=== PATIENT | female | born 2000 | race Caucasian/White ===

== ENCOUNTER 2023-04-17 15:52 | Emergency (ER) | payer BC, SELFPAY ==
[2023-04-17 16:06] VITALS: BP 137/77; PULSE 73; RESP 18; TEMP 36.9; O2SAT 99; BMI 24.0
--- NOTE | 2023-04-17 16:16 | XR_ITS ---
[address] [address] Patient Name: TATA CORADO MRN: [id number] date: 2000 Sex: F Assigned Patient Location: ER Current Patient Location: ER Accession/Order Number: [id number] Exam Date: 04/17/2023 16:27 Report Date: 04/17/2023 17:08 At the request of: MACEY QUINTANILLA Procedure: XR knee HUMBERTO 4V EXAM: XR knee HUMBERTO 4V HISTORY: bilateral knee pain COMPARISON: None. TECHNIQUE: 3 views Bilateral knees FINDINGS: Bones: No acute or aggressive appearing bony lesion. Joints: Normal alignment. No effusion. No significant degenerative findings. Soft tissues: Unremarkable. XR/XR knee HUMBERTO 4V IMPRESSION: No acute process of both knees Electronically authenticated by: SEVERO DARLING Date: 04/17/2023 17:08
--- NOTE | 2023-04-17 16:17 | ED.EXTPRO1 ---
HPI - Extremity Problem General Chief complaint: Extremity Problem, Nontraumatic Stated complaint: BILATERAL KNEE PAIN Time Seen by Provider: 04/17/23 16:01 Source: patient Mode of arrival: walk-in Limitations: no limitations History of Present Illness HPI Narrative: Patient is a 22-year-old female presents to the emergency department for intermittent bilateral knee pain for the last several weeks. She denies any mechanism of injury or trauma. She is not concerned for . No medications taken prior to arrival. She reports pain diffusely in the bilateral knees, no calf pain or lower leg pain. She has not noticed any redness or swelling of the joints. Related Data Previous Rx's Medication Instructions Recorded naproxen sodium 550 mg tablet 550 mg PO BID PRN pain #10 tabs 04/17/23 Allergies Allergy/AdvReac Type Severity Reaction Status Date / Time No Known Drug Allergies Allergy Verified 04/17/23 16:07 Review of Systems ROS Constitutional Denies: fever or chills Cardiovascular Denies: chest pain Respiratory Denies: shortness of breath or cough Gastrointestinal Denies: nausea or vomiting Genitourinary Denies: painful urination Musculoskeletal Reports: extremity pain and joint pain; Denies: back pain or extremity swelling Integumentary/Breast Denies: rash or skin pain Neurological Denies: headache PFSH PFSH Social History Smoking status: Never smoker Exam Narrative Exam Narrative: Gen.: Awake, alert, in no distress Head: Normocephalic, atraumatic ENT: Moist mucous membranes Respiratory: No respiratory distress Extremities: Moves extremities equally, no injuries noted; bilateral patella stable, no laxity. No redness or swelling noted. Normal range of motion to flexion and extension. Psych: Normal mood and affect Neuro: No focal neuro deficit Skin: Warm, dry, intact Constitutional Vital Signs, click to edit/add: Last Vital Signs Temp 98.5 F 04/17/23 16:06 Pulse 73 04/17/23 16:06 Resp 18 04/17/23 16:06 BP 137/77 04/17/23 16:06 Pulse Ox 99 04/17/23 16:06 O2 Del Method Room Air 04/17/23 16:06 Course Vital Signs Vital signs: Vital Signs Temperature 98.5 F 04/17/23 16:06 Pulse Rate 73 04/17/23 16:06 Respiratory Rate 18 04/17/23 16:06 Blood Pressure 137/77 04/17/23 16:06 Pulse Oximetry 99 04/17/23 16:06 Oxygen Delivery Method Room Air 04/17/23 16:06 Temperature 98.5 F 04/17/23 16:06 Pulse Rate 73 04/17/23 16:06 Respiratory Rate 18 04/17/23 16:06 Blood Pressure 137/77 04/17/23 16:06 Pulse Oximetry 99 04/17/23 16:06 Oxygen Delivery Method Room Air 04/17/23 16:06 MDM - Extremity (Nontraumatic) MDM Narrative Medical decision making narrative: Patient with a benign exam, no evidence of septic arthritis or pain out of proportion on exam. No calf tenderness or swelling. X-rays of the bilateral knees are unremarkable. Patient was placed in Ambrosio wrap's of the bilateral knees and discharged home on NSAIDs. Follow-up with PCP and return to the ER if symptoms change or worsen. Work note provided. Imaging Data XR knees bilateral: Attestation: I have reviewed the pertinent imaging results. Radiologist's impression: Procedure: XR knee HUMBERTO 4V EXAM: XR knee HUMBERTO 4V HISTORY: bilateral knee pain COMPARISON: None. TECHNIQUE: 3 views Bilateral knees FINDINGS: Bones: No acute or aggressive appearing bony lesion. Joints: Normal alignment. No effusion. No significant degenerative findings. Soft tissues: Unremarkable. IMPRESSION: No acute process of both knees Electronically authenticated by: SEVERO DARLING Date: 04/17/2023 17:08 Discharge Plan Discharge Chief Complaint: Extremity Problem, Nontraumatic Clinical Impression: Acute bilateral knee pain Patient Disposition: Home, Self-Care Time of Disposition Decision: 17:14 Condition: Good Prescriptions / Home Meds: New naproxen sodium 550 mg tablet 550 mg PO BID PRN (Reason: pain) Qty: 10 0RF Instructions: Arthralgia (ED) Stand Alone Forms: Portal Instructions Referrals: Physician,Non-Staff, MD [Physician] - 1 week
== END 2023-04-17 17:23 | disposition home or self-care (01) ==
PROVIDERS: Emergency Provider Emergency Medicine; PCP Internal Medicine
DX: M25.561 Pain in right knee (principal); M25.562 Pain in left knee
CPT/HCPCS: 73564; 99283

== ENCOUNTER 2024-10-22 02:22 | Emergency (ER) | payer SELFPAY ==
[2024-10-22 02:25] VITALS: BP 122/87; PULSE 88; TEMP 37.1; O2SAT 99; BMI 26.5
--- OUTSIDE RECORDS SUMMARY | 2024-10-22 02:33 | XMS_ITS | CCD ---
Author Organization [facility] Care Team Providers Care Engineering Program Analyst Name Role Phone Abrahan Ireland Unavailable Unavailabl Abrahan Wallace Unavailable Unavailabl Abrahan Wallace Unavailable Unavailabl Abrahan Wallace Unavailable Unavailabl Abrahan Wallace Unavailable Unavailable Abrahan Ireland Unavailable Unavailable Ancelmo, Valerie Lainey Unavailable Unavailable Abrahan Ireland Unavailable Unavailable Unavailable GE LACY Admitting Unavailable GE LACY Attending Unavailable [facility] Primary Care Unavailable GE LACY Consulting Unavailable MANOJ APARICIO Consulting Unavailable ANNA GOMES Primary Care Physician ANNA GOMES Referring Unavail able ANNA GOMES Attending Unavail able ANNA GOMES Admitting Unavail able Medications Completed/Discontinued Medications Medication Drug Class(es) Dates Sig (Normalized) Sig (Original) 200 actuat albuterol 0.09 mg/actuat metered dose inhaler (2 sources) beta2-Adrenergic Agonist Start: 12-20-2017 take 1-2 puff(s) by inhalation every four to six hours as needed ProAir HFA 108 (90 Base) MCG/ACT Inhalation Aerosol Solution INHALE 1 TO 2 PUFFS EVERY 4 TO 6 HOURS NEEDED. Quantity: 1 Refills: 1 Abrahan Ireland MD Start : 20-Dec-2017 Active 8.5 GM Inhaler 24 hr amphetamine aspartate 5 mg / amphetamine sulfate 5 mg / dextroamphetamine saccharate 5 mg / dextroamphetamine sulfate 5 mg extended release oral capsule (3 sources) Central Nervous System Stimulant Start: 05-30-2015 take 1 capsule by mouth once daily in the morning Amphetamine-Dex troamphet ER 20 MG Oral Capsule Extended Release 24 Hour take 1 capsule by mouth every morning Quantity: 30 Refills: 0 Abrahan Ireland MD Start : 27-Jul-2016 Active ARIPiprazole 5 mg oral tablet (3 sources) Atypical Antipsychotic take 2 tablets by mouth once daily Abilify 5 MG Oral Tablet takes 2 tab po daily Quantity: 0 Refills: 0 Ordered: 26-Aug-2021 DO Active Abilify 5 MG Ora l Tablet Refills: 0 Active guanFACINE 1 mg oral tablet (2 sources) Central alpha-2 Adrenergic Agonist Start: 06-30-2021 take 1 tablet by mouth once daily guanFACINE HCl - 1 MG Oral Tablet TAKE 1 TABLET BY MOUTH NIGHTLY DIRECTED Quantity: 30 Refills: 0 Ordered: 30-Jun-2021 DO Start : 30-Jun-2021 Active End: 08-26-2021 Tenex TABS Quantity: 0 Refil ls: 0 Ordered: 26-Aug-2021 DO End : 26-Aug-2021 Complete 24 hr venlafaxine 150 mg extended release oral capsule (1 source) Serotonin and Norepinephrine Reuptake Inhibitor Start: 08-05-2021 take 1 capsule by mouth once daily in the morning Venlafaxine HCl ER 150 MG Oral Capsule Extended Release 24 Hour TAKE 1 CAPSULE BY MOUTH EVERY DAY IN THE MORNING Quantity: 30 Refills: 0 Ordered: 05-Aug-2021 DO Start : 05-Aug-2021 Active Problems Active Problems Problem Classification Problem Date Documented Da te Episodic/Chronic Abdominal pain (6 sources) Functional abdominal pain syndrome; Translations: [Generalized abdominal pain] Episodic Comment on above: non acute abd; Administrative/social admission (1 source) Counseling procedure with explicit context; Translations: [Dietary counseling and surveillance] Episodic Allergic reactions (3 sources) Psoriasiform eczema; Translations: [Other psoriasis and similar disorders] Episodic Anxiety disorders (5 sources) Anxiety; Translations: [Anxiety state, unspecified] Chronic Comment on above: seeing DR Danette Estevez [place] [phone] July 2016doing very well on Abilify; Asthma (3 sources) Exercise-induced asthma; Translations: [Exercise induced bronchospasm] Chronic Attention-deficit conduct and disruptive behavior disorders (3 sources) Attention deficit hyperactivity disorder, predominantly inattentive type; Translations: [Attention deficit disorder without mention of hyperactivity] Chronic Comment on above: Dr Munoz Neuro ev al of ADD and school performance issues May 2016 eval; Attention-deficit, conduct, and disruptive behavior disorders (1 source) Attention-deficit hyperactivity disorder, unspecified type; Translations: [ADHD UNSPECIFIED TYPE] Onset: 10-25-2021 Chronic Blindness and vision defects (3 sources) Wears glasses; Translations: [Other specified conditions influencing health status] Episodic Diabetes mellitus without complication (1 source) Prediabetes; Translations: [Prediabetes] Episodic Disorders usually diagnosed in infancy childhood or adolescence (2 sources) Anxiety disorder of childhood; Translations: [History of Anxiety in pediatric patient] Chronic E Codes: Natural/environment (1 source) Other and unspecified overexertion or strenuous movements or postures, initial encounter; Translations: [OTH AND UNS OVREXRT/STRN MVMT/POS INT] Onset: 10-25-2021 Episodic Immunizations and screening for infectious disease (1 source) Patient encounter status; Translations: [Other specified vaccination] Episodic Other aftercare (1 source) Other detention (current) drug therapy; Translations: [OTH NURSING HOME CURRENT DRUG THERAPY] Onset: 10-25-2021 Episodic Other gastrointestinal disorders (3 sources) Chronic constipation; Translations: [Constipation, unspecified] Episodic Other gastrointestinal disorders (1 source) Heartburn; Translations: [Heartburn] Episodic Other inflammatory condition of skin (3 sources) Seborrheic dermatitis of scalp; Translations: [Seborrhea capitis] Episodic Other non-traumatic joint disorders (3 sources) Pain in left shoulder; Translations: [PAIN IN LEFT SHOULDER] Onset: 10-22-2021 Episodic Other nutritional; endocrine; and metabolic disorders (1 source) Obese class I; Translations: [Body mass index (BMI) 30.0-30.9, adult] Chronic Other nutritional; endocrine; and metabolic disorders (1 source) Abnormal weight gain; Translations: [Abnormal weight gain] Episodic Other screening for suspected conditions (not mental disorders or infectious disease) (3 sources) Child hearing screening failure; Translations: [Nonspecific abnormal auditory function studies] Episodic Residual codes; unclassified (1 source) Finding of body mass index; Translations: [Body Mass Index, pediatric, 5th percentile to less than 85th percentile for age] Episodic Residual codes; unclassified (1 source) History finding; Translations: [Other specified conditions influencing health status] Episodic Residual codes; unclassified (1 source) Family history of diabetes mellitus; Translations: [Family history of diabetes mellitus] Episodic Screening and history of mental health and substance abuse codes (3 sources) H/O: psychiatric disorder; Translations: [Personal history of other mental disorders] Episodic Sprains and strains (1 source) Strain of unspecified muscle, fascia and tendon at shoulder and upper arm level, left arm, initial encounter; Translations: [STRN UNS MSC F TND SHLDR UA LA INIT] Onset: 10-25-2021 Episodic Past or Other Problems Problem Classification Problem Date Documented Da te Episodic/Chronic Unclassified (6 sources) Patient encounter status; Translations: [Encounter for routine child health examination with abnormal findings] Unclassified (2 sources) History finding; Translations: [History of No pertinent past surgical history] Unclassified (1 source) Normal body mass index; Translations: [BMI (body mass index), pediatric, 5% to less than 85% for age] Unclassified (1 source) Finding of body mass index; Translations: [BMI (body mass index), pediatric, 5% to less than 85% for age] NEGATED: Highlighted row has not occurred!Residual codes; unclassified (6 sources) Disease Episodic Results Test Name Value Interpretation Reference Range Facility Coding Summary.on 01-06-2022 Coding Summary. [id number] Gh 0bWw+PGhlYWQ+HY8NWBKzM 29ihFErjS5BK6tAAJ1PSXV BGKJILB4CAM2vqAU5SQoiC 2VybiAv RwmoiNRfVS48MFf8DKM3fE lmLBfpkR3vfNVmN1w6NwJq OM12hH12CDuhJAIsKmD3Wk ZpbjsgbWFy I0xdWwWxrRXfVbh+PHRhYm xlIHdpZHRoPScxMDAlJyBz jNgwVA2gNo1zHASjRDNdmJ xhcHNlOiBj q1jzSPPiZVkrGY2knZdaJ2 RimYN9MLGnk7q7Of59fLQ+ JYXfTAC7oAgqPPrgv513Dn Ftj0rxOXM0 qNMgNCdeNFT4D16hc6X7QX FpTLIjFEI3bKW4bJ3cdHha bopvK9CesNCrFwU5CIC6qU KcuS7ntSri npvzdM5iHwy+V52VOL8ASK QBZR5WLoz4K4HyEczkoWZ+ AI78UNFaRV10gXZluZAje2 epbWn2YuMq NERqCGG2yZyjIXdmy1HqAB FhX97eoSYdh5Q0QJHxqYov xWTeQhZbeBN3yZ6gOPghoi mte6coffgo Ycrkb7ebnk83tY41C06iXZ jyUIGsHBZ7LEUsIEQrlVxt sr2wlF3oUr0+GZgwh9pir4 njhYq2JsXr BFOmwiQqlSuaUIC7h5NpSi 68N8ZxzRlbi8ReCrj6xj32 fEQpr6O7uIM8KEbqKESxdS 4gEWcdZsA1 UHGsBzDdsR22gKMtELinEs 4dfWrwoFsaXM7cSXOanbbn HAZoaP5yHTSmeGNqzOpfYH 4wNTBpbjtm i975OrNyZZR7JERdsUSgO8 BbcI1mKeCnYCYkMEGvX6Nr sOGeIXjtW894TDhcVkB0RK XgysBaM8Ak UAWtjZwwFrT6z7Z4Aa0Go2 BeautkNDH9YTofUMK0AhO2 GrGuPmM1O0CpDqj5FCEycG cfWC8xM2Kv GQCobqfmkkomrLA3QWHfDR EviL71kDQlUKjmRn9pe8B9 p368JSTiHTYcmR13Fl5qeN ogMTBwdCBU rR3mjxhpr8zpggydByWyEX TuQWz5IBg8LFOzeFjnJuVj NKV0RuW4BYT8sCRoxO2cbO qfygzmeM6x Oyc+X83yjW2tDJF6ZBT1be ooMGIpgsGdLK33AP03S7Fb PjwvdGFibGU+PGRpdiBzdH guLI9oUvXb m4muv2BhRWltW8AqHFWwTG zoXan6UYIpMTN1tEV0lD3m TZDsBAxdl1G9cBZ9Y8Xtze Jnvo6qv1id RHVgPMwbC30lbBZts2Q3CT IulRJ7DISngSrtLhJcbT75 Oyc+GCYwyGief0HzOthat1 bqk0ohcSz0 VdGrCAKffsTiuUvbLBH9y7 BhTq50N66hHUrrYSSiMEZp NNQhNLAnyIgvaq2chE5lBd 8+PGNvbCB3 gQS0rE1xNKSuKvI6YQvvT4 38IpCmiZHiZrhnz7adb0ri mXw9JmUpRLHycuTtnQsoNZ J2p2UlEo44 I55hUEpkBKAtKTSmEHFiRZ GtbUfljg8ykA3rRk6+PC9j p0zqey47lZ99jDB+PHRkIH X0aUkyIEcr TTXjbR6lIZjmUrB3OLIjKr EupX22tKLbBTavMu7ytBzr qQzyAZ4pHNHrpbrph646Iy Eby6edIRYt cDPuOExzNYN5J56dj6R0XI JiFGYoZCN1nFK4oB5xtWzr bjogbGVmdDsgdmVydGljYW wfMDgxM594 IHRvcDsnPlBhdGllbnQgTm AoDEv7K4FkQuu7PZNvrHui QU2blHHwXMutRk8vgMhxsA owBT1yVFJj ctiuq466MmNkp9ocDCNvlB IxKXuiPKQ3B95qc7I8TDHe HANoIXR0iDL3dU8xcNjbqo ogbGVmdDsg onEyvTzeRHtqABosP364JM RvcDsnPkJpcnRoIERhdGU6 WC96XM27nOZug0U0mXF8R4 BhZGRpbmct gyeinZS7IQFlHKCkbU52Mr 5brRolCp2yTVLlMES5JZVb ySUnW1MbbL3dGxDxHUXkYO EiY8UjtNHp ENrvN980QQknBjA1ZOXdrs NaK5DoMFCleOxuKuJ5r9A2 Jg1BV2X9WT34RC47qSFrn5 Y9aVA6K4Gr SVSxezprognedPK6HJCvQS HygU94Hz7jeJxhEv8yDWNq IDQ0IIXpvXCkB4AzlR8mHp AjMDAwMDAw N8YlcCJfBSnnJ471ENioMx P2CXXbgfRbH6NoGQNujIub DgB5h9E9Pc0CPXn6LZ53CX 79pHQtw0O7 rXM8I8YpJAWdsigxzpmvfT G4CJLvIMUbxX37By2ruVsw Dh8lZQAkIUR3SQClqUYeN7 AfyT4kUjSy FDYsCCUeS6EllLLiJCcgN6 01HHnsFoC7QFHgegEpV8Ub YIAwqTuqZwK9p2Z1Yb9PZR CbBX14ITH1 wCD2NZ62HI66E1ZmFjrtcP FibGU+PHRhYmxlIHdpZHRo WTxdLCDaYiHpjVymER3jZt 9yZGVyLWNv bMkmrOVgLtDdw1qhXBBhZO uxVG9pqNiqC3CopXC5PAVp c5n7Cl91E12qM3MxgPZ+PG MlcGG2kAR2 pX8wSuQnGvH6SNuzX497Vc JwzLNpTwghw9gdb7hmxDd2 SuF6KLFkzvKfdUsvNUC9c9 SqVu17Y63x IHdpZHRoPSIxNSUiIHZhbG lkbz2vuN7nPw2+PGNvbCB3 lXY7dI0pOaAjXgW3XTjrX0 49InRvcCIv Qcfwi1oab2ruiEo1PsQiQX FpxbDkwBftHMM1a8FwYw56 B9EpkDuyb8VtSga7nl14iI Syw0X1rUA9 P2IgNWWpwjmzxBNtoTluBR 2kNNHlsricSDWdyY5kKNQz T0n7AjYyDcQ2BJicR1Jazl F8IOLolWPw QJtoZUK2P80gj4C2TKIuOW VwXAV8sFP7pE0voOpdhpns bGVmdDsgdmVydGljYWwtYW veF299DXEm bEmfYKYloD0uVVCmpOWxhJ iuNR1bRHOnjrqiFm2PQeSZ PQptMVFTKFt3V3HpBrq7FG EqiElzCS5g tZTuPRmcTg5qlZubaZucHW 6rNDUhrqdmDMXkuT9mTZXm wNIbvUjgLR1lGHXwhnjtz8 91BgLrMIF1 YTWulSTbO2UznQ5bQjGrTL WeVKWsX5SieACfYFflM564 IMijHlC7CUCnawNmB4JmSV FsaWduOiB0 n0P0Xu3nEB9cYa1iSMMiVH 10WR71gCIxe2Z5oKE9A7Gi GKFvfqqayspffRI5PYMqVI UbvV96eFSz KPylZq3jr9U4n458KHJlQZ NluM51Ix6jiOkuWRBrhNRD dB3lwbxab4dgyzeeLzHiXO OpLNv8UCr3 KLQmtOohLySzAVW1ZjY1IW D5zNCjyO5wwEuurdubsI4q Oyc+UfBtLUEenxG2X1JjTq q5LPHscSry LW1sjIAsUVmvZy7woAzrwK bmVK2qFDRjaqpuNXDoiI5x JOApkUZheTqqLG9hYSUzjt duw798OwWw FIS1AOIakIGvD2TtvL4sGh ZgCNRzRSXlO6IpuQWzOEjj L662DVkvHpR2VTUjawBvK0 FsLWFsaWdu SnM6h3I3Nl3DJY5fqFO3D8 WwBji8RGXduOdwMW9qfOZh WBqlRh7hzJnvgAeiCV5zZW BpbjtwYWRk jT1jREJvrBWwkAvnWB5qJX Zlimpdy346IiMnUSW5ZXHu wQHbA9HwhX6rEzVpWFTlIN KmO6RpaMZb UXwiI498KBbuTfN5ZIBsmc NyD7NqUOPlbNznLsH6q6T1 Bd9EUHG1jxMhcwh2N4JeBq wvdHI+PC90 KVHjFA30sHZcqOUys2gnhT h1QzOkHZIuBEZ8hBwzVZlf y3ZkLGErW47lrSGfe3Y9CW NvbGxhcHNl DkVxwDX6qR6hEIfwevtnc9 ltnnnxCnmxi5mefl43uL88 R37bOXtkKURiQYZnOHKuKJ VflMhqix2q cV5eYw7+OGJlwLX3zPB6cP 1bQuHjIcC8FNygW951CuPm nJBiKfcwe7zbt7mvmZu5Ng IwJSIgdmFs sSobFUT2s6ZsLq93C99aZC dpZHRoPSIyMCUiIHZhbGln fs7rcC5tMu8+XW6nl2cybj 85kJ34dYV+ GPVnHRO2eXipDAuyBRLzuD 9kZCxyZsE3NHBjQaDwxT87 jBRvRVdePi1diMsplGdsZZ 4wNTBpbjtm g430BzPck9fpRVVwkBTfVC eqFRV8Y36go5S0ZSMaGKKr JSJ8tZJ2eX7ghOfosumupJ VmdDsgdmVy mFuyNVtuYBngM915OKQjkN hwOsGjyOHwI1eamwBQGY5q OjwvdGQ+HJBtZIW8jKtyUF trRDUekQ3k JEWuN0z0JvNsNoF4VCwmG1 XronH8FCBbvCLhRTUruGFK aB8svyewg3gerdikVuFxLD OoXSj1WHq1 SNDczWlaAeHlVQO9WaO5CQ Z6vXAnsT9zdNjmmxoegV9d Oyc+RklOOjwvdGQ+PHRkIH E7yGwrNBad KTQyoM3xBFGkL8d8XtZpHf A9ABmuP9BuopO8JAXdvDJj SSHtfSTPfG6dcnmtw7gttw ogIzAwMDAw FQg4JWr0AIBaoZlrYaBmRR Z2PuR5IWJ0vNKjqO5szMun squswT5mFjt+TVJOOjwvdG Q+PHRkIHN0 cLlrWMhjFMFiyG5uHDUxK2 r6YaPwPlU2DPkqE2DgfwN6 ABEipSYrTZKmuUBBqE2fdz edv2spvbtb TaUyMHUgBCx6HIc3YYYsjY jrEoBgQNI5InZ9NBP2hFOv mS1tbJvgwbaizA9kSez+UG U1FEO4ZH79 NV47E7LrXhqxlQLrpPP+PH RhYmxlIHdpZHRoPScxMDAl KqYxyGnuIJ3iFg6vYGXfAD NvbGxhcHNl OiBj (more content not included)... Normal [facility] Consent for Treatmenton Consent for Treatment [id number]#1.0 0CD:127 Normal [facility] Outside Records Officeon Outside Records Office [id number]#1. 00CD:127 [facility] Physician Orderon 12-24-2021 Physician Order [id number]#1. 00CD:127 [facility] XR SHOULDER LT 2V or >on XR SHOULDER LT 2V or > EXAM: XR SHOULDER LT 2V or > HISTORY: Pain Exam: XR SHOULDER LT 2V or > Clinical Indication: Pain. Comparison: None. FINDINGS: The 3 views of the shoulder show normal alignment at the glenohumeral joint. There are no fractures or dislocations. The acromioclavicular joint and coracoclavicular spaces are intact. The acromion and coracoid processes appear unremarkable. The subacromial space is unremarkable. The visualized scapula and clavicle are unremarkable. There are no radiopaque foreign bodies or soft tissue swelling. If there is further concern, followup radiographs or MRI of the shoulder may be performed for complete assessment. IMPRESSION: 1. No fractures or dislocations of the left shoulder. Normal exam SL: [id number] Electronically authenticated by: MANOJ APARICIO Date: 2021-10-22 18:57 Normal [facility] Tobacco Screening.on 022 Tobacco use status [facility] b) No [facility] [address] Work Phone: Vital Signs Date Time Vital Sign Value Performing Clinician Facility 08-26-2021 13:02-0400 Body weight 84.03 kg Abrahan Ireland Work Phone: [facility] [address] Work Phone: 08-26-2021 13:02-0400 Diastolic blood pressure 70 mm[Hg] Abrahan Ireland Work Phone: [facility] [address] Work Phone: 08-26-2021 13:02-0400 Heart rate 80 /min Abrahan Ireland Work Phone: [facility] [address] Work Phone: 08-26-2021 13:02-0400 SaO2% (BldA) [Mass fraction] 97 % Abrahan Ireland Work Phone: [facility] Work Phone: 08-26-2021 13:02-0400 Systolic blood pressure 110 mm[Hg] Abrahan Ireland Work Phone: [facility] [address] Work Phone: [phone] [phone] Abrahan Ireland Work Phone: [facility] [address] Work Phone: Comment on above: 2-20_WPerc Encounters Encounter Date Encounter Type Care Provider Facility Start: 12-30-2021 End: 03-31-2022 ambulatory ANNA GOMES [place] [place] Start: 12-30-2021 End: 03-30-2022 Recurring ANNA GOMES [facility] Start: 10-22-2021 End: 10-22-2021 ambulatory GE Noah REGINO Facility: Start: 08-26-2021 Office outpatient visit 15 minutes Abrahan Ireland Work Phone: [facility] [address] Work Phone: Start: 05-26-2020 Patient encounter procedure Valerie Ancelmo [facility] Work Phone: Start: 01-03-2020 Patient encounter procedure Valerie Ancelmo [facility] Work Phone: Start: 11-19-2019 Patient encounter procedure Valerie Ancelmo [facility] Work Phone: Start: 2018 Patient encounter procedure Abrahan Ireland [facility] Work Phone: Start: 12-20-2017 Patient encounter Abrahan lopez Facility:[id number] Patient encounter status Abrahan Ireland Work Phone: [facility] [address] Work Phone: Immunizations Immunization Date Immunization Notes Care Provider [facility] 02-24-2021 influenza, seasonal, injectable, preservative free Abrahankandice Roldanman Work Phone: [facility] [address] Work Phone: Comment on above: Series: 08-20-2020 Pfizer-BioNTech COVI D-19 Vacc 30 MCG/0.3ML Intramuscular Suspension Abrahan Ireland Work Phone: [facility] [address] Work Phone: 07-30-2020 Pfizer-BioNTech COVI D-19 Vacc 30 MCG/0.3ML Intramuscular Suspension Abrahan Ireland Work Phone: [facility] [address] Work Phone: 05-26-2020 Human Papillomavirus 9-valent vaccine; Translations: [Gardasil 9 Intramuscular Suspension Prefilled Syringe] [facility] Work Phone: Comment on above: Series: 01-03-2020 Human Papillomavirus 9-valent vaccine; Translations: [Gardasil 9 Intramuscular Suspension Prefilled Syringe] [facility] Work Phone: Comment on above: Series: 01-03-2020 influenza, injectabl e, quadrivalent, preservative free; Translations: [Fluarix Quadrivalent 0.5 ML Intramuscular Suspension Prefilled Syringe] [facility] Work Phone: Comment on above: Series: 11-19-2019 Human Papillomavirus 9-valent vaccine; Translations: [Gardasil 9 Intramuscular Suspension Prefilled Syringe] [facility] Work Phone: Comment on above: Series: 11-19-2019 meningococcal oligosaccharide (groups A, C, Y and W-135) diphtheria toxoid conjugate vaccine (MCV4O); Translations: [Menveo Intramuscular Solution Reconstituted] [facility] Work Phone: Comment on above: Series: 02-09-2019 influenza virus vacc ine, unspecified formulation; Translations: [Influenza] Abrahan Ireland Work Phone: [facility] Work Phone: Comment on above: Series: 02-09-2019 influenza, seasonal, injectable; Translations: [Influenza] [facility]rahan [facility] Work Phone: 02-15-2018 influenza virus vacc ine, unspecified formulation Abrahan Ireland Work Phone: [facility] Work Phone: Comment on above: Series: 02-15-2018 influenza, seasonal, injectable Abrahan [facility] Work Phone: 02-12-2017 influenza virus vacc ine, unspecified formulation; Translations: [Influenza] Abrahan Ireland Work Phone: [facility] Work Phone: Comment on above: Series: 02-12-2017 influenza, seasonal, injectable; Translations: [Influenza] [facility] Work Phone: 02-28-2016 influenza virus vacc ine, unspecified formulation Abrahan Ireland Work Phone: [facility] [address] Work Phone: Comment on above: Series: 02-28-2016 influenza, seasonal, injectable [facility] Work Phone: 02-11-2015 influenza virus vacc ine, unspecified formulation Abrahan Ireland Work Phone: [facility] Work Phone: Comment on above: Series: 02-11-2015 influenza, seasonal, injectable Abrahan [facility] Work Phone: 02-17-2014 influenza virus vacc ine, unspecified formulation Abrahan Pineda Beka Work Phone: [facility] [address] Work Phone: Comment on above: Series: 02-17-2014 influenza, seasonal, injectable Abrahan Beka [facility] Work Phone: 12-06-2013 meningococcal polysaccharide (groups A, C, Y and W-135) diphtheria toxoid conjugate vaccine (MCV4P) Abrahan Miriam Beka Work Phone: [facility] [address] Work Phone: Comment on above: Series: 12-06-2013 tetanus toxoid, redu raza diphtheria toxoid, and acellular pertussis vaccine, adsorbed Abrahan Ireland Work Phone: [facility] [address] Work Phone: Comment on above: Series: 12-06-2013 meningococcal polysaccharide (groups A, C, Y and W-135) diphtheria toxoid conjugate vaccine (MCV4P) Abrahan Beka [facility] Work Phone: 12-06-2013 tetanus toxoid, redu raza diphtheria toxoid, and acellular pertussis vaccine, adsorbed Abrahan Beka [facility] Work Phone: 12-25-2012 influenza, live, intranasal, quadrivalent Abrahan Beka [facility] Work Phone: Comment on above: Series: 10-31-2007 diphtheria, tetanus toxoids and acellular pertussis vaccine Abrahan Roldanisrael [facility] Work Phone: Comment on above: Series: 10-31-2007 measles, mumps and rubella virus vaccine Abrahan Beka [facility] Work Phone: Comment on above: Series: 10-31-2007 poliovirus vaccine, inactivated Abrahan [facility] Work Phone: Comment on above: Series: 01-13-2003 measles, mumps and rubella virus vaccine [facility] Work [facility]: Comment on above: Series: 01-13-2003 pneumococcal conjuga te vaccine, 7 valent [facility]eka [facility] Work Phone: Comment on above: Series: 01-13-2003 varicella virus [facility] Work Phone: Comment on above: Series: 12-13-2002 diphtheria, tetanus toxoids and acellular pertussis vaccine [facility] Work Phone: Comment on above: Series: 12-13-2002 haemophilus influenz ae type b vaccine, PRP-OMP conjugate [facility]han [facility] Work Phone: Comment on above: Series: 12-13-2002 measles, mumps and rubella virus vaccine Abrahan Miriam Beka Work Phone: [facility] [address] Work Phone: 12-13-2002 pneumococcal conjuga te vaccine, 7 valent Abrahan Miriam Beka Work Phone: [facility] [address] Work Phone: 12-13-2002 varicella virus vaccine Aneesh kandice Ireland Work Phone: [facility] [address] Work Phone: 06-14-2002 diphtheria, tetanus toxoids and acellular pertussis vaccine [facility] Work Phone: Comment on above: Series: 06-14-2002 haemophilus influenz ae type b conjugate and Hepatitis B vaccine Abrahankandice Ireland Work Phone: [facility] [address] Work Phone: 06-14-2002 haemophilus influenz ae type b vaccine, PRP-OMP conjugate Abrahan [facility] Work Phone: Comment on above: Series: 06-14-2002 hepatitis B vaccine, adult dosage Abrahan [facility] Work Phone: Comment on above: Series: 06-14-2002 pneumococcal conjuga te vaccine, 7 valent Abrahan [facility] Work Phone: Comment on above: Series: 06-14-2002 poliovirus vaccine, inactivated [facility] Work Phone: Comment on above: Series: 04-12-2002 diphtheria, tetanus toxoids and acellular pertussis vaccine [facility] Work Phone: Comment on above: Series: 04-12-2002 haemophilus influenz ae type b vaccine, PRP-OMP conjugate [facility] Work Phone: Comment on above: Series: 04-12-2002 poliovirus vaccine, inactivated [facility] Work Phone: Comment on above: Series: 02-11-2002 diphtheria, tetanus toxoids and acellular pertussis vaccine [facility] Work Phone: Comment on above: Series: 02-11-2002 haemophilus influenz ae type b vaccine, PRP-OMP conjugate [facility] Work Phone: Comment on above: Series: 02-11-2002 hepatitis B vaccine, adult dosage [facility] Work Phone: Comment on above: Series: 02-11-2002 pneumococcal conjuga te vaccine, 7 valent [facility] Work Phone: Comment on above: Series: 02-11-2002 poliovirus vaccine, inactivated [facility] Work Phone: Comment on above: Series: 2001 hepatitis B vaccine, adult dosage [facility] Work Phone: Comment on above: Series: Payers Date Payer Category Payer Unknown 2001 Unknown [id number] 2001 Unknown [id number] 1959 Unknown [id number] 1959 Unknown [id number] Unknown [id number] Social History Date Type Detail Facility Assertion Tobacco smoking consumption unknown (finding) [facility] Work Phone: [facility] [address] Work Phone: Tobacco smoking status No Smoking Status Entered [facility] Sex Assigned At Female [facility] Functional Status Date Assessment Result Facility NEGATED: Highlighted row Functional performance Functional status health issues are not documented Disease [facility] Work Phone: Mental Status Date Assessment Result Facility NEGATED: Highlighted row Cognitive function [Interpretation] Cognitive status health issues are not documented Disease [facility] Work Phone: History of Present illness Narrative 08-25-2021 Note Date & Type Note Facility 08-25-2021 History of Present illness Narrative TATA is 20 year old here today with her mother with complaint of squeezing tightening burning of her chest and left work yesterday. This started a few days ago. Tightness in her chest and sharp pains as well.No shortness of breath. breathing heavily Hurts at the upper esophagus/sternum area.Took Rolaids yesterday - not sure it helped - maybe a little bitLying down yesterday helped.No racing pounding heartStill complaining about it todayNo vomitingBad diarrhea yesterdaySlept fine last night.General:Fever: noneAppetite: decreased appetite yesterdayHEENT: no congestion, rhinorrhea, or sore throatPulmonary symptoms: no coughSkin: No new rash [facility] [address] Work Phone: Evaluation + Plan note Note Date & Type Note Facility Evaluation + Plan note No data available for this section [facility] Hospital Discharge instructions Note Date & Type Note Facility Hospital Discharge instructions No data available for this section [facility] Progress note Note Date & Type Note Facility Progress note No data available for this section [facility] Summary Purpose Family History No Family History Records Found Mother Name Dates Details Family history of Allergy to penicillin(V14.0, Z88.0) Status:Active Father Name Dates Details No pertinent family history( V49.89, Z78.9) Status:Active Mother Name Dates Details Family history of Allergy to penicillin(V14.0, Z88.0) Status:Active Father Name Dates Details No pertinent family history( V49.89, Z78.9) Status:Active Unknown Family Member Name Dates Details Allergy to penicillin: Mothe r Status:Active No pertinent family history: Father(V49.89, Z78.9) Status:Active Advance Directives No Advanced Directives Records FoundNo Advanced Directives Records FoundNo Advanced Directives Records Found Chief Complaint chest discomfort/mental health issues Additional Source Comments INFORMATION SOURCE (unrecogn ized section and content) DATE CREATED AUTHOR 12/21/2017 [facility] DATE CREATED AUTHOR AUTHOR'S ORGANIZ ATION 10/25/2021 [facility] DATE CREATED AUTHOR AUTHOR'S ORGANIZ ATION 03/31/2022 [facility] Patient Care team informatio n (unrecognized section and content) Personnel Name: ANNA GOMES DO Address: Address: [facility]. RON MACHUCA, [address] [address] FOR RECORDS PERTAINING TO PATIENTS WHO ARE OR HAVE BEEN ENROLLED IN A CHEMICAL DEPENDENCY/SUBSTANCEABUSE PROGRAM, SOME INFORMATION MAY BE OMITTED. This clinical summary was aggregated from multiple sources. Caution should be exercised in using it in the provision of clinical care. This summary normalizes information from multiple sources, and as a consequence, information in this document may materially change the coding, format and clinical context of patient data. In addition, data may be omitted in some cases. CLINICAL DECISIONS SHOULD BE BASED ON THE PRIMARY CLINICAL RECORDS. [facility]. provides no warranty or guarantee of the accuracy or completeness of information in this document.
--- OUTSIDE RECORDS SUMMARY | 2024-10-22 02:33 | XMS_ITS | Clinical Summary ---
Author Organization [facility] Address [address] [place] [address] Phone Care Team Providers Care Bronzer Name Role Phone Abrahan Ireland MD Primary Care Provider Joann silva Social History Tobacco Use Types Packs/Day Years Used Date Smoking Tobacco: Never Assessed Comments Unknown Sex and Gender Information Value Date Recorded Sex Assigned at Not on file Legal Sex Female 2:24 PM EST Gender Identity Not on file Sexual Orientation Not on file Last Filed Vital Signs Vital Sign Reading Time Taken Comments Blood Pressure 110/70 08/26/2021 1:02 PM EDT Pulse 80 08/26/2021 1:02 PM EDT Temperature 36.9 C (98.5 F) 11/19/2019 9:49 AM EDT Respiratory Rate - - Oxygen Saturation 97% 08/26/2021 1:02 PM EDT Inhaled Oxygen Concentration - - Weight 84 kg (185 lb 4 oz) 08/26/2021 1:02 PM ED T Height 160.7 cm (5' 3.25 ) 11/19/2019 9:49 AM ED T Body Mass Index - - Plan of Treatment Health Maintenance Due Date Last Done Comments HIV Screening 2001 Lipid Panel 2001 Varicella Vaccines (2 of 2 - 2-dose childhood series) 01/22/2013 01/13/2003 HPV Vaccines (1 - 3-dose series) 2016 Meningococcal B Vaccine (1 of 2 - Standard) 2017 Hepatitis C Screening 12/11/2019 Yearly Adult Physical 11/19/2020 11/19/2019 Pneumococcal Vaccine: Pediatrics and At-Risk Adult Patients (1 of 2 - PCV) 2020 01/13/2003, 06/14/2002, 02/11/2002 Cervical Cancer Screening 2022 HPV/Cotest 2022 Pap Smear 2022 DTaP/Tdap/Td Vaccines (7 - Td or Tdap) 12/07/2023 12/06/2013, 10/31/2007, 12/13/2002, Additional history exists COVID-19 Vaccine ( season) 2023 Influenza Vaccine (Season Ended) 2024 02/24/2021, 02/09/2019, 02/15/2018, Additional history exists Zoster Vaccines (1 of 2) 12/11/2051 01/13/2003 Hepatitis B Vaccines Completed 06/14/2002, 02/11/2002, 2001 HIB Vaccines Completed 12/13/2002, 06/01, 04/12/2002, Additional history exists IPV Vaccines Completed 10/31/2007, 06/01, 04/12/2002, Additional history exists MMR Vaccines Completed 10/31/2007, 01/13/2003 Meningococcal Vaccine Completed 11/19/2019, 014 Hepatitis A Vaccines Aged Out No long er eligible based on patient's age to complete this topic Rotavirus Vaccines Aged Out No longer eligible based on patient's age to complete this topic Care Teams Bronzer Relationship Specialty Start Date End Date Abrahan Ireland MD PCP - General 01/16/17
--- OUTSIDE RECORDS SUMMARY | 2024-10-22 02:33 | XMS_ITS | Clinical Summary ---
Author Organization [facility] Address [address] [place] [address] Care Team Providers Care Vac Press Operator Name Role Phone Lev Thurman Primary Care Provider [phone] Allergies Active Allergy Reactions Criticality Noted Date Comments Semaglutide Rash Low 09/22/2022 Medications amphetamine-dex troamphetamine XR (Adderall XR) 20 MG 24 hr capsule Take 20 mg by mouth in the morning. Active ARIPiprazole (Abilify) 10 MG tablet Take 10 mg by mouth in the morning. Active guanFACINE (Tenex) 2 MG tablet Take 2 mg by mouth at bedtime. Take 2 tablets qhs Active venlafaxine XR (Effexor XR) 150 MG 24 hr capsule Take 150 mg by mouth in the morning. Active FLUoxetine (PROzac) 40 MG capsule Take 40 mg by mouth in the morning. Active albuterol HFA 90 mcg/act inhaler Inhale 1 puff every 4 (four) hours if needed for wheezing or shortness of breath. 2 Active benzonatate (Tessalon) 100 MG capsuleIndicati ons:Acute cough Take 1 capsule (100 mg) by mouth 3 (three) times a day as needed for cough for up to 21 doses. Do not crush or chew. 21 capsule 3 Active dulaglutide (Trulicity) 1.5 MG/0.5ML solution pen-injectorInd ications:Insuli n resistance Inject 1.5 mg under the skin 1 (one) time per week. 4 pen 3 Active Active Problems Problem Noted Date Diagnosed Date Asperger's syndrome 09/13/2022 Insulin resistance 09/13/2022 Assessment & Plan (11/02/2022 9:21 AM EDT): She is doing well. No side effects. No rash. She has cut down on sweets, however, she is still drinking Root Beer. I discussed high sugary diet/metabolic syndrome. I would like her to decrease and cut out soda completely. I discussed how to minimize side effect on GLP1 if she experiences some with increasing in Trulicity. Assessment & Plan (10/03/2022 9:12 AM EDT): Insulin 12.3. Previously could not tolerate Ozempic, nausea vomiting, rash on face. Would like to trial a different GLP1. Other obesity due to excess calories 09/13/2022 Attention deficit hyperactivity disorder 023 Assessment & Plan (10/03/2022 9:12 AM EDT): Follows psychiatry. Binge eating disorder 09/13/2022 Class 1 obesity 09/13/2022 Recurrent major depressive disorder, in partial remission 09/13/2022 Mild intermittent asthma without complication Assessment & Plan (10/03/2022 9:09 AM EDT): Exercise induced asthma, no exacerbations. Immunizations Immunization Administration Dates Next Due DTaP, 5 pertussis antigens 10/31/2007,04/12/2002 ,02/11/2002 DTaP, Unspecified 12/13/2002,06/14/2002 HPV 9-Valent 05/26/2020,01/03/2020,11/19/2019 Hep B, Adolescent or Pediatric 02/11/2002,2001 HiB, unspecified 12/13/2002 Hib (PRP-OMP) 04/12/2002,02/11/2002 Hib / Hep B 06/14/2002 IPV 10/31/2007, 3,04/12/2002,02/11 Influenza, injectable, MDCK, preservative free, quadrivalent 04/12/2022 Influenza, injectable, quadr ivalent, preservative free 02/24/2021,01/03/2020,02/09/2019,02/15,02/12/2017,02/28/2016 Influenza, live, intranasal 02/17/2014, 3 Influenza, live, intranasal, quadrivalent 02/11/2015 MMR 10/31/2007,01/13/2003,12/13/2002 Meningococcal MCV4O 11/19/2019 Meningococcal MCV4P 12/06/2013 Pneumococcal Conjugate PCV 7 01/13/2003, 12/13/2002,06/14/2002,02/11 Tdap 12/06/2013 Varicella 01/13/2003,12/13/2002 Family History Medical History Relation Name Comments Diabetes Father Hyperlipidemia Father Arthritis Maternal Grandmother Diabetes Maternal Grandmother Hypertension Maternal Grandmother Ovarian cancer Maternal Grandmother Stroke Maternal Grandmother Fibromyalgia Mother No Known Problems Sister Relation Name Status Comments Brother 2 Father Alive Maternal Grandmother Mother Alive Sister 1 Social History Tobacco Use Types Packs/Day Years Used Date Smoking Tobacco: Never Smokeless Tobacco: Never Tobacco Cessation:Counseling Given: Not Answered Alcohol Use Standard Drinks/Week Comments Never 0 (1 standard drink = 0.6 oz pur e alcohol) PHQ-2 Answer Date Recorded Patient Health Questionnaire-2 Score 0 10/28/2022 Comments Unknown Sex and Gender Information Value Date Recorded Sex Assigned at Not on file Legal Sex Female 6:37 PM EDT Gender Identity Not on file Sexual Orientation Not on file 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 Not on file Not on file Last Filed Vital Signs Vital Sign Reading Time Taken Comments Blood Pressure 100/58 10/03/2022 8:39 AM EDT Pulse 89 10/03/2022 8:39 AM EDT Temperature - - Respiratory Rate - - Oxygen Saturation 99% 10/03/2022 8:39 AM EDT Inhaled Oxygen Concentration - - Weight 79.8 kg (176 lb) 10/03/2022 8:39 AM EDT Height 162.6 cm (5' 4 ) 06/29/2022 12:00 PM EST Body Mass Index 30.21 06/29/2022 12:00 PM EST Plan of Treatment Health Maintenance Due Date Last Done Comments Influenza Vaccine (Season Ended) 2024 04/12/2022, 02/24/2021, 01/03/2020, Additional history exists Insurance [employer] Care Teams Vac Press Operator Relationship Specialty Start Date End Date Lev Thurman DO PCP - General Internal Medicine 10/03/22
--- OUTSIDE RECORDS SUMMARY | 2024-10-22 02:33 | XMS_ITS | Clinical Summary ---
Author Organization [employer] [facility] tem Address [id number] [place] [address] Care Team Providers Care Maintenance Mechanic 2Nd Shift Name Role Phone Abrahan Ireland MD Primary Care Provider [phone] Allergies Active Allergy Reactions Criticality Noted Date Comments No Known Drug Allergies 11/11/2016 Other 11/11/2016 Medications * This document contains information received from the source organization and may not represent a complete record from that organization. amphetamine-dextro amphetamine XR (ADDERALL XR) 20 mg 24 hr capsuleIndications :Attention deficit hyperactivity disorder, combined type Take 1 capsule (20 mg total) by mouth in the morning. Max Daily Amount: 20 mg. 30 capsule 3 Active ARIPiprazole (ABILIFY) 5 mg tabletIndications: Autistic disorder, residual state,Generalized anxiety disorder Take 1 tablet (5 mg total) by mouth in the morning. 30 tablet 6 3 Active FLUoxetine (PROzac) 20 mg capsuleIndications :Generalized anxiety disorder Take 1 capsule (20 mg total) by mouth in the morning. 30 capsule 6 3 Active traZODone (DESYREL) 50 mg tabletIndications: Insomnia, unspecified type Take 1 tablet (50 mg total) by mouth nightly. 30 tablet 6 3 Active Active Problems Problem Noted Date Diagnosed Date Poor impulse control 06/09/2022 Generalized anxiety disorder 09/11/2019 Attention deficit hyperactivity disorder, combin ed type 12/07/2016 Autistic disorder, residual state 11/21/2016 Social History Tobacco Use Types Packs/Day Years Used Date Smoking Tobacco: Never Childcare Answer Date Recorded Childcare Unknown 10/04/2018 Employment Answer Date Recorded Employment Unknown 10/04/2018 Purpose - Life Answer Date Recorded Purpose and direction in life Unknown Comments Unknown Sex and Gender Information Value Date Recorded Sex Assigned at Not on file Legal Sex Female 10:47 AM EDT Gender Identity Not on file Sexual Orientation Not on file Last Filed Vital Signs Vital Sign Reading Time Taken Comments Blood Pressure 122/80 11/12/2021 9:22 AM EDT Pulse 88 11/12/2021 9:22 AM EDT Temperature - - Respiratory Rate - - Oxygen Saturation - - Inhaled Oxygen Concentration - - Weight 83 kg (183 lb) 11/12/2021 9:22 AM EDT Height 158.1 cm (5' 2.25 ) 12/07/2016 3:17 PM ED T Body Mass Index - - Plan of Treatment Health Maintenance Due Date Last Done Comments Depression Screening 2013 Adult BMI Screening 12/11/2019 Pap Smear 2022 DTaP,Tdap and Td Vaccines (7 - Td or Tdap) 12/07/2023 12/06/2013, 10/31/2007, 12/13/2002, Additional history exists COVID-19 Vaccine (4 2023-2 5 season) 2023 12/23/2021, 08/20/2020, 07/30/2020 Tobacco Screening 04/03/2024 04/03/2023 Influenza Vaccine 12/30/2024 04/12/2022, , 01/03/2020, Additional history exists Medical Devices Not on file Insurance [employer] Care Teams Maintenance Mechanic 2Nd Shift Relationship Specialty Start Date End Date Abrahan Ireland MD [address] [place] [address] PCP - General 11/06/16
--- NOTE | 2024-10-22 02:40 | ED.MEDCLEAR1 ---
HPI - Medical Clearance General Chief complaint: Medical Clearance Stated complaint: GLUCOSE 121 Time Seen by Provider: 10/22/24 02:36 Source: patient Mode of arrival: ambulance Limitations: no limitations History of Present Illness HPI Narrative: working in hot environment at work. felt dizzy and light headed. States she had a fever at work. Brought to ER. Feeling better and drinking fluids. Denies nausea or vomiting. No headache or abdominal pain Related Information Home Medications ?Medication ?Instructions ?Recorded ?Confirmed No Known Home Medications 10/22/24 10/22/24 Allergies Allergy/AdvReac Type Severity Reaction Status Date / Time semaglutide (From Ozempic) Allergy Intermediate Rash Verified 10/22/24 02:32 Review of Systems ROS Status of ROS 10 or more systems reviewed and unremarkable except as noted in history and below [facility] Social History Smoking status: Never smoker Little interest or pleasure in doing things: not at all Feeling down, depressed, or hopeless: not at all Exam Constitutional Vital Signs, click to edit/add: Last Vital Signs Temp 98.7 F 10/22/24 02:25 Pulse 88 10/22/24 02:25 Resp 15 10/22/24 02:25 BP 122/87 10/22/24 02:25 Pulse Ox 99 10/22/24 02:25 O2 Del Method Room Air 10/22/24 02:25 Common normals: no apparent distress, average body habitus and oriented x3 HENMT Common normals: normocephalic Eye Common normals: PERRL, EOMs intact bilaterally and conjunctivae normal Respiratory Common normals: normal respiratory effort, no retractions, no use of accessory muscles and clear to auscultation bilaterally Cardio Common normals: regular rate, regular rhythm, S1 normal heart sound and S2 normal heart sound GI Common normals: Normal to inspection, nondistended, normoactive bowel sounds present, soft to palpation and non-tender Extremity Common normals: normal to inspection and full ROM Neuro Common normals: oriented x3, CN's II-XII intact bilaterally, moves all extremities and no focal motor deficits Psych Appearance: grossly normal Course Vital Signs Vital signs: Vital Signs Temperature 98.7 F 10/22/24 02:25 Pulse Rate 88 10/22/24 02:25 Respiratory Rate 15 10/22/24 02:25 Blood Pressure 122/87 10/22/24 02:25 Pulse Oximetry 99 10/22/24 02:25 Oxygen Delivery Method Room Air 10/22/24 02:25 Temperature 98.7 F 10/22/24 02:25 Pulse Rate 88 10/22/24 02:25 Respiratory Rate 15 10/22/24 02:25 Blood Pressure 122/87 10/22/24 02:25 Pulse Oximetry 99 10/22/24 02:25 Oxygen Delivery Method Room Air 10/22/24 02:25 MDM - Medical Clearance MDM Narrative Medical decision making narrative: exposed to heat at work. Became dizzy and light headed and transferred here. Feeling better now and drinking fluids. Exam neg. Labs ordered and WNL. Patient continues to feel well and is discharged home Lab Data Labs: Lab Results 10/22/24 Range/Units 03:30 WBC 7.6 (4.0-11.0) 10^3/uL RBC 4.59 (4.20-5.40) 10^6/uL Hgb 13.5 (12.0-16.0) g/dL Hct 38.5 (36.0-48.0) % MCV 83.9 (81.0-99.0) fL MCH 29.4 (26.7-34.0) pg MCHC 35.1 (29.9-35.2) g/dL RDW 12.6 (11.0-15.0) % Plt Count 170 (150-450) 10^3/uL MPV 10.1 (9.5-13.5) fL Neut % (Auto) 56.9 (43.0-75.0) % Lymph % (Auto) 25.8 (20.5-60.0) % Hart % (Auto) 11.3 (1.7-12.0) % Eos % (Auto) 4.0 (0.9-7.0) % Baso % (Auto) 0.9 (0.2-2.0) % Neut # (Auto) 4.3 (1.4-6.5) 10^3/uL Lymph # (Auto) 2.0 (1.2-3.8) 10^3/uL Hart # (Auto) 0.9 H (0.3-0.8) 10^3/uL Eos # (Auto) 0.3 (0.0-0.7) 10^3/uL Baso # (Auto) 0.1 (0.0-0.1) 10^3/uL Abs Immat Gran (auto) 0.08 H (0.00-0.03) 10^3/uL Imm/Tot Granulo (auto) 1.1 H (0.0-0.5) % Sodium 138 (136-145) mmol/L Potassium 4.0 (3.5-5.1) mmol/L Chloride 103 (98-107) mmol/L Carbon Dioxide 24.2 (21.0-32.0) mmol/L Anion Gap 14.8 BUN 14.0 (7.0-18.0) mg/dL Creatinine 0.60 (0.55-1.02) mg/dL Est GFR ( Amer) >60 (>=60 mL/min/1.73m^2) Est GFR (Non-Af Amer) >60 (>=60 mL/min/1.73m^2) BUN/Creatinine Ratio 23.3 Glucose 84 (74-106) mg/dL Calcium 8.9 (8.5-10.1) mg/dL Total Bilirubin 0.2 (0.2-1.0) mg/dL AST 20 (15-37) U/L ALT 19 (14-59) U/L Alkaline Phosphatase 97 (46-116) U/L Total Protein 7.6 (6.4-8.2) g/dL Albumin 3.8 (3.4-5.0) g/dL Globulin 3.8 g/dL Albumin/Globulin Ratio 1.0 Discharge Plan Discharge Chief Complaint: Medical Clearance Clinical Impression: Heat exhaustion Patient Disposition: Home, Self-Care Prescriptions / Home Meds: No Action No Known Home Medications Print Language: Turkish Instructions: Heat Exhaustion (ED) Additional Instructions: drink plenty of fluids. follow up with your doctor in next couple of days for recheck Referrals: ANNA GOMES [Primary Care Provider, Internal Medicine] - 1 week
[2024-10-22 03:37] LABS: Basophils Absolute Auto 0.1 10^3/uL (0.0-0.1); Basophils Percent Auto 0.9 % (0.2-2.0); Eosinophils Absolute Auto 0.3 10^3/uL (0.0-0.7); Hematocrit 38.5 % (36.0-48.0); Hemoglobin 13.5 g/dL (12.0-16.0); Immature Granulocytes Abs Auto 0.08 10^3/uL (0.00-0.03); Immature Granulocytes Pct Auto 1.1 % (0.0-0.5); Lymphocytes Percent Auto 25.8 % (20.5-60.0); Mean Corpuscular HGB Conc 35.1 g/dL (29.9-35.2); Mean Corpuscular Hemoglobin 29.4 pg (26.7-34.0); Mean Corpuscular Volume 83.9 fL (81.0-99.0); Mean Platelet Volume 10.1 fL (9.5-13.5); Monocytes Absolute Auto 0.9 10^3/uL (0.3-0.8); Monocytes Percent Auto 11.3 % (1.7-12.0); Neutrophils Absolute Auto 4.3 10^3/uL (1.4-6.5); Neutrophils Percent Auto 56.9 % (43.0-75.0); Platelet Count 170 10^3/uL (150-450); Red Blood Count 4.59 10^6/uL (4.20-5.40); Red Cell Distribution Width 12.6 % (11.0-15.0); White Blood Count 7.6 10^3/uL (4.0-11.0)
[2024-10-22 03:50] LABS: Alanine Aminotransferase 19 U/L (14-59); Albumin Level 3.8 g/dL (3.4-5.0); Alkaline Phosphatase 97 U/L (46-116); Anion Gap 14.8; Aspartate Amino Transferase 20 U/L (15-37); BUN Creatinine Ratio 23.3; Bilirubin Total 0.2 mg/dL (0.2-1.0); Calcium 8.9 mg/dL (8.5-10.1); Carbon Dioxide 24.2 mmol/L (21.0-32.0); Chloride 103 mmol/L (98-107); Estimated GFR (African America >60 (>=60 mL/min/1.73m^2); Estimated GFR (Non-African Ame >60 (>=60 mL/min/1.73m^2); Globulin 3.8 g/dL; Glucose 84 mg/dL (74-106); Sodium 138 mmol/L (136-145); Total Protein 7.6 g/dL (6.4-8.2)
[2024-10-22 04:26] VITALS: BP 108/67; O2SAT 98
== END 2024-10-22 04:30 | disposition home or self-care (01) ==
PROVIDERS: Emergency Provider Internal Medicine; PCP Internal Medicine
DX: T67.5XXA Heat exhaustion, unspecified, initial encounter (principal); X30.XXXA Exposure to excessive natural heat, initial encounter
CPT/HCPCS: 36415; 80053; 85025; 99284